=== PATIENT | female | born 1955 | race Asian ===

== ENCOUNTER 2018-10-06 07:39 | Day surgery (SDC) | payer OTHER ==
[2018-09-29 12:33] VITALS: BMI 19.4
[2018-10-06] MEDS ORDERED: LIDOCAINE HCL/PF 2% SDV 5ML VIAL ONE (08:02)
[2018-10-06] MEDS ORDERED: PROPOFOL 20 ML ONE ×2 (08:02)
[2018-10-06 08:09] VITALS: TEMP 98.2
[2018-10-06 10:12] VITALS: BP 98/60; PULSE 85
--- NOTE | 2018-10-08 17:56 | PATH ---
Surgical Pathology Report Patient Name: DAYSI GOFF [facility]. Rec. #: [id number] /Age/Gender: 1955 (Age: 62) / F Account: [id number] Location: [facility] Taken: 10/06/2018 Received: 10/06/2018 Reported: 10/08/2018 Physicians: Philip Dowling M.D. Specimen(s) Received TRANSVERSE COLON POLYP Clinical History History of polyp, family history colon cancer Postoperative diagnosis: Colon polyp Final Diagnosis TRANSVERSE COLON POLYP, POLYPECTOMY: HYPERPLASTIC POLYP. Electronically Signed Royal Barrett M.D. Gross Description Received in formalin, labeled "biopsy transverse colon polyp" are 2 campo, irregular portions of soft tissue measuring 0.2 and 0.3 cm. in greatest dimension. The specimens are submitted in toto in one cassette. 10/07/201810/07/2018
== END 2018-10-06 10:00 | disposition home or self-care (01) ==
LOC: FASU-ENDO 07:39
PROVIDERS: ATTEND Internal Medicine Gastroenterology
PROC: 0DBL8ZX Excision of Transverse Colon, Via Natural or Artificial Opening Endoscopic, Diagnostic (ICD-10-PCS; principal; 2018-10-06 08:30)
DX: Z86.010 Personal history of colon polyps (principal); K63.5 Polyp of colon; Z80.0 Family history of malignant neoplasm of digestive organs
CPT/HCPCS: 88305-TC

== ENCOUNTER 2023-09-02 08:40 | Day surgery (SDC) | payer OTHER, BC ==
[2023-09-02] MEDS ORDERED: DENOSUMAB 60 MG/ML DISP.SYRIN SQ ONE (09:00)
[2023-09-02 09:44] VITALS: BP 108/64; PULSE 70; RESP 20; TEMP 98.3
== END 2023-09-02 09:10 | disposition home or self-care (01) ==
LOC: J7W 08:40 → JINFUSION 08:40
PROVIDERS: ATTEND Internal Medicine Endocrinology, Diabetes & Metabolism
PROC: 3E023GC Introduction of Other Therapeutic Substance into Muscle, Percutaneous Approach (ICD-10-PCS; principal; 2023-09-02)
DX: M81.0 Age-related osteoporosis without current pathological fracture (principal)
CPT/HCPCS: 96372; J0897

== ENCOUNTER 2024-03-23 07:32 | Day surgery (SDC) | payer OTHER, MEDICARE ==
[2024-03-16 15:52] VITALS: BMI 19.4
[2024-03-23] MEDS ORDERED: LIDOCAINE HCL/PF 2% SDV 5ML VIAL ONE (07:41)
[2024-03-23] MEDS ORDERED: PROPOFOL 160 ML ONE (07:41)
[2024-03-23 08:48] VITALS: TEMP 97.1
[2024-03-23 08:50] VITALS: BP 114/72; PULSE 68; RESP 18
== END 2024-03-23 08:55 | disposition home or self-care (01) ==
LOC: FASU-ENDO 07:32
PROVIDERS: ATTEND Internal Medicine Gastroenterology
PROC: 0DJD8ZZ Inspection of Lower Intestinal Tract, Via Natural or Artificial Opening Endoscopic (ICD-10-PCS; principal; 2024-03-23 08:10)
DX: Z12.11 Encounter for screening for malignant neoplasm of colon (principal); K57.30 Diverticulosis of large intestine without perforation or abscess without bleeding; Z86.010 Personal history of colon polyps; Z80.0 Family history of malignant neoplasm of digestive organs

== ENCOUNTER 2024-03-25 08:28 | Day surgery (SDC) | payer OTHER, MEDICARE ==
[2024-03-25] MEDS: DENOSUMAB 60 MG/ML DISP.SYRIN SQ ONE (08:41)
[2024-03-25 09:47] VITALS: BP 112/76; PULSE 61; RESP 18; TEMP 98.5
== END 2024-03-25 09:10 | disposition home or self-care (01) ==
LOC: JINFUSION 08:28 → J7W 08:29 → JINFUSION 09:10
PROVIDERS: ATTEND Internal Medicine Endocrinology, Diabetes & Metabolism
PROC: 3E013GC Introduction of Other Therapeutic Substance into Subcutaneous Tissue, Percutaneous Approach (ICD-10-PCS; principal; 2024-03-25)
DX: M81.8 Other osteoporosis without current pathological fracture (principal); M85.88 Other specified disorders of bone density and structure, other site
CPT/HCPCS: 96365; 96372; J0897

== ENCOUNTER 2024-07-12 08:08 | Emergency (ER) | payer OTHER, MEDICARE ==
[2024-07-12 08:15] VITALS: BP 144/86; PULSE 62; RESP 18; TEMP 98.8; BMI 24.2
[2024-07-12] MEDS ORDERED: DIPHTH,PERTUSS(ACELL),TET 0.5 ML DISP.SYRIN IM ONE (08:22)
[2024-07-12] MEDS: DIPHTH,PERTUSS(ACELL),TET 0.5 ML DISP.SYRIN IM ONE (08:27)
== END 2024-07-12 08:32 | disposition home or self-care (01) ==
LOC: FER 08:08
PROC: 3E0234Z Introduction of Serum, Toxoid and Vaccine into Muscle, Percutaneous Approach (ICD-10-PCS; principal; 2024-07-12)
DX: S61.254A Open bite of right ring finger without damage to nail, initial encounter (principal); W53.01XA Bitten by mouse, initial encounter
CPT/HCPCS: 90471; 90715; 99284-25

== ENCOUNTER 2024-09-01 13:42 | Emergency (ER) | payer OTHER, MEDICARE ==
[2024-09-01 13:50] VITALS: BP 123/76; PULSE 73; RESP 18; TEMP 99.5
== END 2024-09-01 14:16 | disposition home or self-care (01) ==
LOC: FER 13:42
DX: S81.802A Unspecified open wound, left lower leg, initial encounter (principal); X58.XXXA Exposure to other specified factors, initial encounter
CPT/HCPCS: 99283-25

== ENCOUNTER 2024-09-17 11:38 | Day surgery (SDC) | payer OTHER, MEDICARE ==
[2024-09-17] MEDS: DENOSUMAB 60 MG/ML DISP.SYRIN SQ ONE (12:14)
[2024-09-17 12:33] VITALS: BP 108/65; PULSE 70; RESP 14; TEMP 98.4
== END 2024-09-17 12:33 | disposition home or self-care (01) ==
LOC: FINJECTION 11:38 → FM/S 11:39 → FINJECTION 12:33
PROVIDERS: ATTEND Internal Medicine Endocrinology, Diabetes & Metabolism
PROC: 3E023GC Introduction of Other Therapeutic Substance into Muscle, Percutaneous Approach (ICD-10-PCS; principal; 2024-09-17)
DX: M81.0 Age-related osteoporosis without current pathological fracture (principal)
CPT/HCPCS: 96372; J0897

== ENCOUNTER 2025-03-14 12:16 | Day surgery (SDC) | payer OTHER, MEDICARE ==
[2025-03-14] MEDS: DENOSUMAB 60 MG/ML DISP.SYRIN SQ ONE (13:03)
[2025-03-14 13:11] VITALS: BP 115/69; PULSE 60; RESP 18; TEMP 98.7
== END 2025-03-14 13:14 | disposition home or self-care (01) ==
LOC: FINJECTION 12:16 → FM/S 12:17 → FINJECTION 13:14
PROVIDERS: ATTEND Internal Medicine Endocrinology, Diabetes & Metabolism
PROC: 3E013GC Introduction of Other Therapeutic Substance into Subcutaneous Tissue, Percutaneous Approach (ICD-10-PCS; principal; 2025-03-14)
DX: M81.0 Age-related osteoporosis without current pathological fracture (principal)
CPT/HCPCS: 96372; J0897